=== PATIENT | male | born 1995 | race Caucasian/White ===

== ENCOUNTER → 2016-06-11 | Outpatient (CLI) | payer BC ==
--- NOTE | 2016-06-11 10:03 | DIAGNOSTIC IMAGING REPORT ---
RIGHT KNEE MRI HISTORY: RIGHT KNEE PAIN Right COMPARISON STUDY: None. TECHNIQUE: Multiplanar multisequence MRI of the right knee was performed according to standard department protocol without the use of contrast. FINDINGS: Menisci: The medial and lateral menisci are intact. Ligaments: The anterior and posterior cruciate ligaments are intact. The medial and lateral collateral ligaments are normal in appearance. Extensor mechanism: The quadriceps tendon and patellar ligament are intact. Articular cartilage and bone: The articular cartilage is intact, and normal marrow signal intensity is seen throughout the imaged osseous structures. Joint effusion: None. Soft tissues: Small focus of edema at the superolateral aspect of Hoffa's fat pad immediately inferior to the patella. IMPRESSION: 1. No evidence for meniscal tear. 2. No fracture or dislocation within the right knee. 3. Small focus of edema at the superolateral aspect of Hoffa's fat pad immediately inferior to the patella. This raises the possibility of mild fat pad impingement syndrome. Electronically signed by: Buddy Luna M.D. 06/11/2016 10:01 AM Dictated Date/Time: 06/11/2016 9:56 AM
== END | disposition home or self-care (01) ==
LOC: C.MRIBC 08:55
PROVIDERS: ATTEND Orthopaedic Surgery
DX: M25.561 Pain in right knee (principal); M79.89 Other specified soft tissue disorders